=== PATIENT | female | born 1965 | race Two or more races ===

== ENCOUNTER 2016-12-31 07:10 | Emergency (ER) | payer OTHER ==
[2016-12-31 07:24] VITALS: BMI 26.6
--- NOTE | 2016-12-31 08:50 | PDOC ---
History of Present Illness - General Chief Complaint: Palpitations Stated Complaint: headache, palpitations Time Seen by Provider: 12/31/16 08:00 History Source: Patient Exam Limitations: No Limitations - History of Present Illness Initial Comments: 12/31/16 08:57 The patient is a 51 year old female with a PMH of thyroid nodules that presents to ED today complaining of pain in her cervical spine and headache that started last night. It is located in her temporal area, radiating down the neck and left upper extremity. It is 6/10, sharp. No aggravating/alleviating factors. It is associated with palpitations. She also states that the pain it woke her up at night and at that time she also she felt pain, numbness in the RLE that disappeared. The pt states that she has been having pain in her upper back and headaches for the past 2 weeks. She was scheduled to have MRI of her spine but is waiting for insurance approval. She denies chest pain, dizziness, weakness. She recently lost 150 lbs and had abdominoplasty. She denies dysuria, increased frequency, urgency, fever, N/V, diarrhea, constipation. 12/31/16 14:10 Timing/Duration: 4-6 hours Severity: moderate Aspirin Received prior to arrival: Yes: no aspirin today Past History - Past Medical History Allergies/Adverse Reactions: Allergies Allergy/AdvReac Type Severity Reaction Status Date / Time No Known Allergies Allergy Verified 12/31/16 07:19 Home Medications: Ambulatory Orders NK [No Known Home Medication] 12/31/16 Other medical history: none - Surgical History Abdominal Surgery: No Appendectomy: No Cardiac Surgery: No Cholecystectomy: No Gastric Stapling: No GI Surgery: No Lung Surgery: No Neurologic Surgery: No Orthopedic Surgery: No - Family Disease History Family Disease History: Diabetes: Mother - Psycho/Social/Smoking Cessation Hx Anxiety: No Suicidal Ideation: No Smoking Status: No Smoking History: Never smoked Have you smoked in the past 12 months: No Information on smoking cessation initiated: No Hx Alcohol Use: No Drug/Substance Use Hx: No Substance Use Type: None Review of Systems - Review of Systems Able to Perform ROS?: Yes Comments:: 12/31/16 08:48 REVIEW OF SYSTEMS CONSTITUTIONAL: chills Absent: fever, diaphoresis, generalized weakness, malaise, loss of appetite, weight change HEENT: Absent: rhinorrhea, nasal congestion, throat pain, throat swelling, difficulty swallowing, mouth swelling, ear pain, eye pain, visual changes CARDIOVASCULAR: palpitations Absent: chest pain, syncope, irregular heart rate, lightheadedness, peripheral edema RESPIRATORY: Absent: cough, shortness of breath, dyspnea with exertion, orthopnea, wheezing, stridor, hemoptysis GASTROINTESTINAL: Absent: abdominal pain, abdominal distension, nausea, vomiting, diarrhea, constipation, melena, hematochezia GENITOURINARY: Absent: dysuria, frequency, urgency, hesitancy, hematuria, flank pain, genital pain MUSCULOSKELETAL: Absent: myalgia, arthralgia, joint swelling, back pain, neck pain SKIN: Absent: rash, itching, pallor HEMATOLOGIC/IMMUNOLOGIC: Absent: easy bleeding, easy bruising, lymphadenopathy, frequent infections ENDOCRINE: Absent: unexplained weight gain, unexplained weight loss, heat intolerance, cold intolerance NEUROLOGIC: headache, numbness and pain in left upper extremity Absent: focal weakness or paresthesias, dizziness, unsteady gait, seizure, mental status changes, bladder or bowel incontinence PSYCHIATRIC: Absent: anxiety, depression, suicidal or homicidal ideation, hallucinations. Is the patient limited [place] proficient: No Constitutional: Yes: Chills. No: Fever, Weakness *Physical Exam - Vital Signs Last Vital Signs Temp Pulse Resp BP Pulse Ox 98.0 F 74 18 129/85 100 12/31/16 07:20 12/31/16 07:20 12/31/16 07:20 12/31/16 07:20 12/31/16 07:20 - Physical Exam Comments: 12/31/16 08:51 GENERAL: The patient is awake, alert, and fully oriented, in no acute distress. HEAD: Normal with no signs of trauma. EYES: PERRL, extraocular movements intact, sclera anicteric, conjunctiva clear. No ptosis. ENT: Ears normal, nares patent, oropharynx clear without exudates, moist mucous membranes. NECK: Trachea midline, full range of motion, supple. LUNGS: Breath sounds equal, clear to auscultation bilaterally, no wheezes, no crackles, no accessory muscle use. HEART: Regular rate and rhythm, S1, S2 without murmur, rub or gallop, no tenderness to palpation. ABDOMEN: Soft, nontender, nondistended, normoactive bowel sounds, no guarding, no rebound, no hepatosplenomegaly, no masses. EXTREMITIES: 2+ pulses, warm, well-perfused, no edema. NEUROLOGICAL: Cranial nerves II through XII grossly intact, no facial asymmetry , no tongue deviation. Normal speech, gait not observed. DTRs 2+ in RUE and RLE, 1+ LUE, 1+ LLE. Romberg negative. PSYCH: Normal mood, normal affect. SKIN: Warm, dry, normal turgor, no rashes, vertical scar in abdomen 12/31/16 13:20 Heart Score/ECG Review - History History: Moderately suspicious - Electrocardiogram EKG: Significant ST-depression - Age Age: 45-65 - Risk Factors Based on the list above the patient has:: No risk factors known #1 General ECG Interpretation: Sinus Rhythm Compared to previous ECG there are: Previous ECG unavail - ECG Intrepretation Rhythm: Regular Rhythm - [place]: Normal - ST and T ST Depression Suggest: Ischemia (lead II, aVF, V3, V4, V5) ED Treatment Course - LABORATORY CBC & Chemistry Diagram: 12/31/16 09:45 12/31/16 09:45 Medical Decision Making - Medical Decision Making 12/31/16 09:22 The patient comes with palpitations, neck pain, headache and pressure in the chest. Differential diagnosis include ACS, radiculopathy, anxiety ordered CBC, BMP, troponins, Tylenol, ASA 81 mg ordered. 12/31/16 10:01 The pt started complaining of pressure in her chest. She didn't complain of that before. She denies pain, palpitations, nausea, SOB. 12/31/16 13:07 first Troponin not elevated, consulted Dr. Murray, waiting for the next Troponin, elevated Ca noted. We ordered cardiac monitoring. 12/31/16 13:19 ordered ECHO and TSH 12/31/16 17:24 Second EKG done, changed. Contacted Dr. Joyce, admitted to obs telemetry. The pt was informed and agreed to stay. Toponins, TSH still pending. *DC/Admit/Observation/Transfer Diagnosis at time of Disposition: Palpitations - Referrals
--- NOTE | 2016-12-31 09:13 | PDOC ---
Attending Attestation - Resident Resident Name: BrandoShelia - ED Attending Attestation I have performed the following: I have examined & evaluated the patient, The case was reviewed & discussed with the resident, I agree w/resident's findings & plan, Exceptions are as noted - HPI HPI: 51 yo F no PMH presents with palpitations and chest pressure since last night. She states that she had a headache associated with her symptoms, kept hearing her pulse in her R ear. Denies SOB, N/V, sweating. No prior cardiac history, no prior stress test/cardiac workup. - Physicial Exam PE: GENERAL: Awake, alert, and fully oriented, in no acute distress HEAD: No signs of trauma EYES: PERRLA, EOMI, sclera anicteric, conjunctiva clear ENT: Auricles normal inspection, hearing grossly normal, nares patent, oropharynx clear without exudates. Moist mucosa NECK: Normal ROM, supple, no lymphadenopathy, JVD, or masses LUNGS: Breath sounds equal, clear to auscultation bilaterally. No wheezes, and no crackles HEART: Regular rate and rhythm, normal S1 and S2, no murmurs, rubs or gallops ABDOMEN: Soft, nontender, normoactive bowel sounds. No guarding, no rebound. No masses EXTREMITIES: Normal range of motion, no edema. No clubbing or cyanosis. No cords, erythema, or tenderness NEUROLOGICAL: Cranial nerves II through XII grossly intact. Normal speech, normal gait SKIN: Warm, Dry, normal turgor, no rashes or lesions noted. - Medical Decision Making 51 yo F no significant PMH presents with chest pain. Initial EKG with multiple inverted T waves, cardiology consulted. Subsequent EKG different in appearance- pseudonormalized in the precordial leads. D/w Dr. Navarrete at shift change, will admit to hospitalist.
[2016-12-31] MEDS ORDERED: ACETAMINOPHEN 325 MG TABLET (FP) PO ONE (09:18)
[2016-12-31] MEDS ORDERED: ASPIRIN 81 MG CHEWABLE TABLETS PO ONE (09:19)
[2016-12-31] MEDS ORDERED: ACETAMINOPHEN 325 MG TABLET (FP) ONE (09:25)
[2016-12-31] MEDS ORDERED: ASPIRIN 81 MG CHEWABLE TABLETS ONE (09:25)
[2016-12-31 10:19] LABS: BASOPHIL 0.4 % (0-2.0); EOSINOPHIL 0.9 % (0-4.5); MCH 30.7 pg (25.7-33.7); MCHC 33.1 g/dl (32.0-36.0); MEAN CELL VOLUME 92.8 fl (80-96); MEAN PLT VOLUME 9.9 fl (7.5-11.1); PLATELET COUNT 194 K/MM3 (134-434); RDW 13.3 % (11.6-15.6)
[2016-12-31 10:55] LABS: ANION GAP 11 (8-16); CALCIUM 10.3 mg/dL (8.5-10.1); CO2 25 mmol/L (21-32); GLUCOSE,RANDOM 74 mg/dL (74-106)
[2016-12-31 10:56] LABS: TROPONIN I < 0.02 ng/ml (0.00-0.05)
--- NOTE | 2016-12-31 12:45 | CON.CARD ---
Consult Consult Specialty:: cardiology Reason for Consultation:: palpitations - History of Present Illness Chief Complaint: Pt still feels intermitten irregular heart beats History of Present Illness: The patient is a 51 year old black female with a PMH of thyroid nodules, "perimenopausal" (no menses since 04/2016), s/p abdominoplasty for excess skin after weight loss (lost 150 lbs in 2 yrs with diet), that presents to ED today complaining of pain in her cervical spine and headache that started last night. It is located in her temporal area, radiating down the neck and left upper extremity. It is 6/10, sharp. No aggravating/alleviating factors. It is associated with palpitations. She also states that the pain it woke her up at night and at that time she also she felt pain, numbness in the RLE that disappeared. The pt states that she has been having pain in her upper back and headaches for the past 2 weeks. She was scheduled to have MRI of her spine but is waiting for insurance approval. She denies chest pain, dizziness, weakness. She denies dysuria, increased frequency, urgency, fever, N/V, diarrhea, constipation. Timing/Duration: 4-6 hours Severity: moderate Aspirin Received prior to arrival: Yes: no aspirin today - History Source History Provided By: Patient, Family Member, Medical Record Limitations to Obtaining History: No Limitations - Past Medical History Reproductive: Yes: Postmenopausal - Alcohol/Substance Use Hx Alcohol Use: No - Smoking History Smoking history: Never smoked Have you smoked in the past 12 months: No Home Medications - Allergies Allergies/Adverse Reactions: Allergies Allergy/AdvReac Type Severity Reaction Status Date / Time No Known Allergies Allergy Verified 12/31/16 07:19 - Home Medications Home Medications: Ambulatory Orders NK [No Known Home Medication] 12/31/16 Vital Signs: Vital Signs Temperature 98.0 F 12/31/16 07:20 Pulse Rate 66 12/31/16 11:20 Respiratory Rate 19 12/31/16 11:20 Blood Pressure 120/77 12/31/16 11:20 O2 Sat by Pulse Oximetry (%) 98 12/31/16 11:20 - Other Data Labs, Other Data: CBC, BMP 12/31/16 09:45 12/31/16 09:45 Troponin, BNP 12/31/16 09:45 Troponin I < 0.02 Troponin, BNP 12/31/16 09:45 Troponin I < 0.02 Problem List - Problems (1) Palpitations Assessment/Plan: F/u on telemetry. EKG: NSR; T wave changes inferolaterally.; f/u serially. 1st TNI negative. F/u TSH (hx thyroid nodules). ECHO for LVEF, chamber sizes, valve status. Pt used to exercise regularly and vigorously, but stopped last summer when her back and hip began hurting. Consider stress treadmill test (if no significant EKG changes, and TNI remains normal, may do as outpatient). Code(s): R00.2 - PALPITATIONS (2) Vitamin D deficiency Assessment/Plan: on Vitamin D Pt says she is being worked up for a possible autoimmune disorder. Code(s): E55.9 - VITAMIN D DEFICIENCY, UNSPECIFIED (3) Anxiety Code(s): F41.9 - ANXIETY DISORDER, UNSPECIFIED (4) Back pain Code(s): M54.9 - DORSALGIA, UNSPECIFIED (5) Hypercalcemia Assessment/Plan: ?on Vitamin D/calcium. F/u workup; consider repeat study. Code(s): E83.52 - HYPERCALCEMIA
[2016-12-31 17:20] LABS: TROPONIN I < 0.02 ng/ml (0.00-0.05)
--- NOTE | 2016-12-31 19:46 | CONSULT ---
Consultation: REQUESTING PROVIDER: CONSULT REQUEST: We have been asked to medically evaluate this patient for ( specify). HISTORY OF PRESENT ILLNESS: Patient presents to the ED with complaint of palpitations for 1 day. Patient has no cardiac history or prior history of palpitation. Patient has history significant for thyroid nodules. She has no complain of chest pain, nausea, vomiting or diaphoresis. Patient was evaluated by Dr. Murray while in ED and cardiology consult appreciated. Patient had 2 sets of troponins that were negative. Serial of ECG show T wave inversions and inferior lateral leads unchanged. ECHO done today and was within normals. REVIEW OF SYSTEMS: CONSTITUTIONAL: Absent: fever, chills, diaphoresis, generalized weakness, malaise, loss of appetite, weight change HEENT: Absent: rhinorrhea, nasal congestion, throat pain, throat swelling, difficulty swallowing, mouth swelling, ear pain, eye pain, visual changes CARDIOVASCULAR: Present: palpitations Absent: chest pain, syncope, irregular heart rate, lightheadedness, peripheral edema RESPIRATORY: Absent: cough, shortness of breath, dyspnea with exertion, orthopnea, wheezing, stridor, hemoptysis GASTROINTESTINAL: Absent: abdominal pain, abdominal distension, nausea, vomiting, diarrhea, constipation, melena, hematochezia GENITOURINARY: Absent: dysuria, frequency, urgency, hesitancy, hematuria, flank pain, genital pain MUSCULOSKELETAL: Absent: myalgia, arthralgia, joint swelling, back pain, neck pain SKIN: Absent: rash, itching, pallor HEMATOLOGIC/IMMUNOLOGIC: Absent: easy bleeding, easy bruising, lymphadenopathy, frequent infections ENDOCRINE: Absent: unexplained weight gain, unexplained weight loss, heat intolerance, cold intolerance NEUROLOGIC: Absent: headache, focal weakness or paresthesias, dizziness, unsteady gait, seizure, mental status changes, bladder or bowel incontinence PSYCHIATRIC: Absent: anxiety, depression, suicidal or homicidal ideation, hallucinations. PHYSICAL EXAMINATION VS: Last Vital Signs Temp Pulse Resp BP Pulse Ox 98.0 F 68 19 119/74 100 12/31/16 07:20 12/31/16 15:20 12/31/16 15:20 12/31/16 15:20 12/31/16 15:20 GENERAL: Awake, alert, and fully oriented, in no acute distress. HEAD: Normal with no signs of trauma. EYES: Pupils equal, round and reactive to light, extraocular movements intact, sclera anicteric, conjunctiva clear. No lid lag. EARS, NOSE, THROAT: Ears normal, nares patent, oropharynx clear without exudates. Moist mucous membranes. NECK: Normal range of motion, supple without lymphadenopathy, JVD, or masses. LUNGS: Breath sounds equal, clear to auscultation bilaterally. No wheezes, and no crackles. No accessory muscle use. HEART: Regular rate and rhythm, normal S1 and S2 without murmur, rub or gallop. ABDOMEN: Soft, nontender, not distended, normoactive bowel sounds, no guarding, no rebound, no masses. No hepatomegaly or splenomegaly. MUSCULOSKELETAL: Normal range of motion at all joints. No bony deformities or tenderness. No CVA tenderness. UPPER EXTREMITIES: 2+ pulses, warm, well-perfused. No cyanosis. No clubbing. Cap refill <2 seconds. No peripheral edema. LOWER EXTREMITIES: 2+ pulses, warm, well-perfused. No calf tenderness. No peripheral edema. NEUROLOGICAL: Cranial nerves II-XII intact. Normal speech. Normal gait. PSYCHIATRIC: Cooperative. Good eye contact. Appropriate mood and affect. SKIN: Warm, dry, normal turgor, no rashes or lesions noted. LABS: CBCD WBC 4.0 K/mm3 (4.0-10.0) 12/31/16 09:45 RBC 4.73 M/mm3 (3.60-5.2) 12/31/16 09:45 Hgb 14.5 GM/dL (10.7-15.3) 12/31/16 09:45 Hct 43.9 % (32.4-45.2) 12/31/16 09:45 MCV 92.8 fl (80-96) 12/31/16 09:45 MCHC 33.1 g/dl (32.0-36.0) 12/31/16 09:45 RDW 13.3 % (11.6-15.6) 12/31/16 09:45 Plt Count 194 K/MM3 (134-434) 12/31/16 09:45 MPV 9.9 fl (7.5-11.1) 12/31/16 09:45 CMP Sodium 139 mmol/L (136-145) 12/31/16 09:45 Potassium 4.0 mmol/L (3.5-5.1) 12/31/16 09:45 Chloride 103 mmol/L (98-107) 12/31/16 09:45 Carbon Dioxide 25 mmol/L (21-32) 12/31/16 09:45 Anion Gap 11 (8-16) 12/31/16 09:45 BUN 16 mg/dL (7-18) 12/31/16 09:45 Creatinine 1.0 mg/dL (0.55-1.02) 12/31/16 09:45 Calcium 10.3 mg/dL (8.5-10.1) H 12/31/16 09:45 IMPRESSIONS AND RECOMMENDATIONS Palpitations with ECG changes - ACS ruled out - Case discussed with Dr. Murray - Patient will benefit from stress test that can be done as outpatient - Recommended to contact cardiology office on Tuesday for follow up appointment - Recommended Aspirin 81 mg daily - Discussed with patient slightly elevated calcium levels and advised further follow up and monitoring with PCP. Dispo: Thank you for this consultative opportunity. Documentation prepared by BRENDA Foreman, acting as medical intern for Susie eRed MD, MD. <Batsheva Neri - Last Filed: 12/31/16 20:30> Visit type - Emergency Visit Emergency Visit: Yes ED Registration Date: 12/31/16 Care time: The patient presented to the Emergency Department on the above date and was hospitalized for further evaluation of their emergent condition. - New Patient This patient is new to me today: Yes Date on this admission: 12/31/16 - Critical Care Critical Care patient: No <Susie Reed - Last Filed: 12/31/16 19:45>
--- NOTE | 2016-12-31 19:55 | PDOC ---
*Physical Exam - Vital Signs Last Vital Signs Temp Pulse Resp BP Pulse Ox 98.0 F 68 19 119/74 100 12/31/16 07:20 12/31/16 15:20 12/31/16 15:20 12/31/16 15:20 12/31/16 15:20 ED Treatment Course - LABORATORY CBC & Chemistry Diagram: 12/31/16 09:45 12/31/16 09:45 - ADDITIONAL ORDERS Additional order review: Laboratory Results 12/31/16 12/31/16 12/31/16 15:30 15:30 09:45 Sodium Potassium Chloride Carbon Dioxide Anion Gap BUN Creatinine Random Glucose Calcium Creatine Kinase 90 Troponin I < 0.02 TSH 0.48 Urine HCG, Qual Negative 12/31/16 09:45 Sodium 139 Potassium 4.0 Chloride 103 Carbon Dioxide 25 Anion Gap 11 BUN 16 Creatinine 1.0 Random Glucose 74 Calcium 10.3 H Creatine Kinase Troponin I < 0.02 TSH Urine HCG, Qual 12/31/16 09:45 RBC 4.73 MCV 92.8 MCHC 33.1 RDW 13.3 MPV 9.9 Neutrophils % 73.0 Lymphocytes % 21.0 Monocytes % 4.7 Eosinophils % 0.9 Basophils % 0.4 - Medications Given in the ED: ED Medications Discontinued Medications Generic Name Dose Route Start Last Admin Trade Name Freq PRN Reason Stop Dose Admin Acetaminophen 650 mg 12/31/16 09:18 12/31/16 09:25 Tylenol - PO 12/31/16 09:19 650 mg ONCE ONE Administration Aspirin 81 mg 12/31/16 09:19 12/31/16 09:25 Asa - PO 12/31/16 09:20 81 mg ONCE ONE Administration Medical Decision Making - Medical Decision Making 12/31/16 19:54 Sign-out received from outgoing Emergency Physician Pt interviewed and examined Ancillary studies reviewed Case discussed in detail with oncoming Emergency Physician including history, physical exam and ancillary studies. The patient was initially admitted for ECG changes (flipped t waves on ECG). This was discussed with admitting hospitalist Dr. Reed. After Dr. Reed had discussed these findings with Dr. Murray. Dr. Murray agrees that the patient can have a rapid outpatient follow up for a stress test. Dr. Reed had spoken with the patient. Will discharge patient home. I discussed the physical exam findings, ancillary test results and final diagnoses with the patient. I answered all of the patient's questions. The patient was satisfied with the care received and felt comfortable with the discharge plan and treatment plan. The patient will call their primary care physician within 24 hours to arrange follow-up and will return to the Emergency Department with any new, persistant or worsening symptoms. *DC/Admit/Observation/Transfer Diagnosis at time of Disposition: Palpitations - Discharge Dispostion Disposition: HOME Condition at time of disposition: Stable Admit: No - Referrals Referrals: Josue Romero MD [Primary Care Provider] - Arsalan Murray MD [Staff Physician] - - Patient Instructions Printed Discharge Instructions: DI for Chest Pain Additional Instructions: You have had a cardiac evaluation here in the ED. At this time, you are cleared to leave the ED. However, after speaking with freelance makeup artist Dr. Murray, it is very very important to follow up as an outpatient because you will likely need a stress test. If at any point you develop chest pain, difficulty breathing, please return to the ER for further evaluation.
[2016-12-31 21:07] VITALS: BP 120/77; PULSE 62; TEMP 97.7
--- NOTE | 2017-01-01 14:48 | EKG ---
Test Reason : Blood Pressure : / mmHG Vent. Rate : 065 BPM Atrial Rate : 065 BPM P-R Int : 146 ms QRS Dur : 084 ms QT Int : 442 ms P-R-T Axes : -38 029 -05 degrees QTc Int : 459 ms UNUSUAL P AXIS, POSSIBLE ECTOPIC ATRIAL RHYTHM ABNORMAL ECG WHEN COMPARED WITH ECG OF 31-DEC-2016 07:34, ECTOPIC ATRIAL RHYTHM HAS REPLACED SINUS RHYTHM NONSPECIFIC T WAVE ABNORMALITY NO LONGER EVIDENT IN LATERAL LEADS Confirmed by MAHESH FRANK MD ([id number]) on 01/01/2017 2:48:01 PM Referred By: Confirmed By:MAHESH FRANK MD
--- NOTE | 2017-01-01 14:56 | EKG ---
Test Reason : Blood Pressure : / mmHG Vent. Rate : 083 BPM Atrial Rate : 083 BPM P-R Int : 138 ms QRS Dur : 086 ms QT Int : 372 ms P-R-T Axes : 063 013 -48 degrees QTc Int : 437 ms NORMAL SINUS RHYTHM NONSPECIFIC T WAVE ABNORMALITY ABNORMAL ECG NO PREVIOUS ECGS AVAILABLE Confirmed by MAHESH FRANK MD ([id number]) on 01/01/2017 2:55:46 PM Referred By: Confirmed By:MAHESH FRANK MD
== END 2016-12-31 21:07 | disposition home or self-care (01) ==
LOC: JER 07:10 → JERBED 17:22 → UNDOADMOB 17:22 → JER 21:07
DX: R00.2 Palpitations (principal); E07.9 Disorder of thyroid, unspecified
CPT/HCPCS: 36415; 71010-TC; 80048; 82550; 84443; 84484; 84703; 85025; 93005; 93010; 93306-TC; 99284-25